=== PATIENT | male | born 1950 | race Caucasian/White ===

== ENCOUNTER → 2019-04-17 15:20 | Outpatient (CLI) | payer MEDICARE, OTHER, SELFPAY ==
--- NOTE | 2019-04-17 | DI.US.S_ITS ---
PROCEDURE: US EXTREMITY NONVASC LOWER LT INDICATIONS: LOCALIZED SWELLING OR MASS LEFT BUTTOCK TECHNIQUE: Real-time scanning was performed of the left buttock, with image documentation. COMPARISON: None. FINDINGS: Solid hyperechoic subcutaneous soft tissue mass corresponding to the palpable abnormality measuring 4.7 x 1.0 x 1.2 cm. IMPRESSION: Solid hyperechoic subcutaneous soft tissue mass which may represent a lipoma; however differential would include both benign and malignant etiologies. If indicated, soft tissue MRI could be performed for further characterization. Dictated by: Zheng Danielson [facility] Interpreted: Pro Al MD on 04/19/2019 at 8:29 Approved by: Pro Al M.D. on 04/19/2019 at 11:21
== END ==
PROVIDERS: Family Provider Family Medicine; PCP Family Medicine; Referring Provider Family Medicine; Visit Provider Family Medicine
DX: R22.2 Localized swelling, mass and lump, trunk (principal)
CPT/HCPCS: 76882

== ENCOUNTER → 2019-05-14 15:46 | Outpatient (CLI) | payer MEDICARE, OTHER, SELFPAY ==
--- NOTE | 2019-05-14 15:48 | DI.MRI.S_ITS ---
PROCEDURE: MR PELIS WO/W CON INDICATIONS: atypical soft tissue mass left butt(medial ) R/O sarcoma TECHNIQUE: Noncontrast coronal T1 spin echo and STIR, sagittal T1 spin echo with fat saturation and STIR, axial T1 spin echo and T2 fast spin echo with fat saturation. After the administration of contrast, axial/sagittal/coronal T1 spin echo with fat saturation through the pelvis. COMPARISON: [facility], US, US EXTREMITY NONVASC LOWER LT, 04/17/2019, 16:10. FINDINGS: Image quality: Excellent. Bones: Diffusely heterogeneous appearance of the marrow signal intensity, of unknown etiology. The overlying cortex appears intact. No abnormal intraosseous enhancement. Lumbar spondylosis and facet disease. Incidental small synovial herniation pit seen at the right femoral head neck junction. Soft tissues: In the inferior left gluteal subcutaneous soft tissues, there is ill-defined enhancement measuring approximately 9 mm. There is some subtle internal fat signal present. No discrete abscess is identified. No underlying signal abnormalities. No pathologically enlarged lymphadenopathy. IMPRESSION: 9 mm area of subcutaneous focal enhancement present within the inferior left gluteal soft tissues, technically indeterminate. There is predominantly peripheral ill-defined enhancement pattern. This finding is technically nonspecific and infectious or inflammatory etiologies in differential, including entities such as fat necrosis. A small soft tissue mass cannot be excluded (and lipoma is still conceivable, statistically less likely liposarcoma) Therefore recommend clinical correlation and management. Continued imaging surveillance could be performed with serial ultrasound to document long-term stability or resolution. Heterogeneous appearance of the marrow signal intensity raising possibility of chronic anemia or other diffuse marrow infiltrative process. Dictated by: Jhon Goddard M.D. on 05/14/2019 at 17:03 Approved by: Jhon Goddard M.D. on 05/14/2019 at 17:13
== END ==
PROVIDERS: Family Provider Family Medicine; PCP Family Medicine; Referring Provider Specialist; Visit Provider Specialist
DX: R29.898 Other symptoms and signs involving the musculoskeletal system (principal)
CPT/HCPCS: 72197; A9579

== ENCOUNTER → 2019-09-27 14:38 | Outpatient (CLI) | payer MEDICARE, OTHER, SELFPAY ==
[2019-09-29 19:09] LABS: COVID19 Sendout Not Detected (Not Detect)
== END ==
PROVIDERS: Family Provider Family Medicine; PCP Student in an Organized Health Care Education/Training Program; Visit Provider Physician Assistant
DX: Z01.818 Encounter for other preprocedural examination (principal)
CPT/HCPCS: 87635

== ENCOUNTER 2019-09-30 08:28 | Day surgery (SDC) | payer MEDICARE, OTHER, SELFPAY ==
[2019-09-24 07:42] VITALS: BMI 27.7
[2019-09-30] VITALS (8 sets, daily range): BP systolic 121–147; BP diastolic 84–95; PULSE 52–56; RESP 10–20; TEMP 36–36.6; O2SAT 97–99; BMI 27.7
--- NOTE | 2019-09-30 | PATH_ITS ---
[facility] Accession Number: [id number] . 01 Material submitted: . buttock - LEFT BUTTOCK MASS . 01 Clinical history: . SDC . 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 MRV 10/03/2019 1204 Local . 01 Electronically signed: . Connie Ordoñez MD, Dermatopathologist NPI- [id number] . 01 Gross description: . Received in formalin and labeled with left buttock mass, is one piece of urrutia adipose tissue measuring 5.0 x 5.0 x 2.0 cm. The tissue is inked, serially sectioned into eight slices, and entirely submitted in cassettes A1-A6; three slices in cassette A1 and the remaining five slices in cassettes A2-A6, with one slice per cassette. ([id number]) /MRV 10/01/2019 1053 Local . 01 Pathologist provided ICD-10: D48.5 . 01 CPT . 128879 Performed at: [address] [facility] [address], [place], [place] [id number] MD Evin Pop MD Phone: [phone]
[2019-09-30] MEDS: LACTATED RINGERS 1,000 ML 42 ML IV (08:49)
--- NOTE | 2019-09-30 10:16 | PM.HP.1 ---
History of Present Illness History of Present Illness Date Patient Seen: 09/30/19 Time Patient Seen: 10:16 Chief complaint: SDC Narrative: The patient is a gentleman here for removal of a mass from his left buttock. MRI reveals a subcutaneous mass not suspicious for sarcomatous growth. Patient History Surgical History No history of previous surgery (Acute) Family & Social History Family History Mother Breast cancer Social History: household members significant other Tobacco & Substance use: Smoking Status Never smoker alcohol intake current alcohol intake frequency 0-2 drinks per day Substance Use Type does not use Meds Home Medications and Allergies Home Medications Medication Instructions Recorded Confirmed Type No Known Home Medications 05/08/19 09/24/19 History Allergies Allergy/AdvReac Type Severity Reaction Status Date / Time bisoprolol [BISOPROLOL] AdvReac Unknown ANXIETY Verified 09/30/19 09:01 digoxin [DIGOXIN] AdvReac Unknown ANXIETY Verified 09/30/19 09:01 lisinopril [LISINOPRIL] AdvReac Unknown ANXIETY Verified 09/30/19 09:01 Penicillins [PENICILLINS] AdvReac Unknown SOFT SKIN Verified 09/30/19 09:01 FUMARATE AdvReac Unknown ANXIETY Uncoded 09/30/19 09:01 Review of Systems Review of Systems ROS: Yes All systems reviewed with the patient and are negative except as otherwise documented Exam Vital Signs (past 8 hours): - 09/30/19 08:50 Temperature 96.8 F L Pulse Rate 52 L Respiratory Rate 20 Blood Pressure 136/88 Pulse Oximetry 98 Oxygen Delivery Method Room Air Narrative Exam Narrative: Pleasant cooperative patient no apparent distress. Lungs are clear to auscultation. No rales or rhonchi. Heart regular rate and rhythm no murmur gallop. The patient has a palpable subcutaneous mass in his left buttock overlying his ischial tuberosity. It measures approximately 4 by 3 cm. Patient is alert and oriented x3. Assessment & Plan Assessment and plan (1) Lipoma: Status: Acute Assessment & Plan narrative: Patient has localized symptoms with this mass. It is right where he sits. He would like to have it removed. I have discussed removal including risks of bleeding infection recurrence. I also talked with him about post op restrictions. All questions answered.
--- NOTE | 2019-09-30 10:21 | PM.PREOP ---
Pre-operative Note COVID-19 COVID-19 status: Negative Result date/Date tested (Pos, Neg/Pending): 09/30/19 Interval Note History & Physical reviewed/Exam performed by Physician: Yes Changes to H&P: No
--- NOTE | 2019-09-30 10:21 | SUR.OPER ---
Lateral on padded OR bed, head on pillow, gel axillary roll in place, bottom leg bent with gel pad under knee to foot, upper leg straight and supported with pillows. Upper arm supported by pillows and secured over bottom arm to padded arm board. Safety belt at hip, tape over blanket lower legs.
[2019-09-30] MEDS: BUPIVACAINE 0.5% (PF) VIAL 30 ML INJ (11:41)
[2019-09-30] MEDS: BACITRACIN OINT 0.9 GM PCKT 1 APPLIC TOP (11:52)
--- NOTE | 2019-09-30 12:13 | SUR.PHASEI ---
Received to PACU at 1158 after general anesthesia. Airway patent, self maintained. Report received from Dr Colon and Sammi Harmon RN.
--- NOTE | 2019-09-30 12:41 | PM.OP.1 ---
Operative Date/Time/Diagnoses Date of procedure: 09/30/19 Time of procedure: 12:21 Pre-op diagnosis: Mass on buttock probable lipoma Post-op diagnosis: same Procedure & Clinicians Procedure: Excision of mass measured 4 x 3 cm Same procedure as scheduled: Yes Indications: Symptomatic mass on buttock Surgeon: Jair Tan Anesthesia Type: General Operative Notes Findings: Mass consistent with lipoma Closure Type: primary Specimen(s): other (Mass) Prosthetic devices, grafts, tissues, transplants, or devices: None Estimated Blood Loss (mL): 5 Blood products transfused: none Procedure in detail: Patient was placed in the right lateral decubitus position after undergoing general LMA anesthesia. He was prepped and draped in the usual fashion. Local anesthetic was infiltrated and a transverse incision made overlying the mass. The incision was carried down in the subcu and the subcu to down to and including the mass was excised using principally cautery. space was partially closed with 3 0 Vicryl. The subcu was closed with interrupted 3 0 Vicryl and the skin was closed with interrupted 3 0 nylon vertical mattress sutures. Dressing was applied the patient was placed back in his bed extubated and taken recovery room good condition Complications: none Post-operative Condition: stable Disposition: PACU
== END 2019-09-30 12:55 | disposition home or self-care (01) ==
PROVIDERS: Family Provider Family Medicine; PCP Student in an Organized Health Care Education/Training Program; Referring Provider Specialist; Visit Provider Specialist
PROC: (CPT 11406; principal; 2019-09-30 09:45)
DX: D48.5 Neoplasm of uncertain behavior of skin (principal)
CPT/HCPCS: 11406; J1100; J1885; J2250; J2405; J2704; J3010

== ENCOUNTER → 2019-11-07 07:06 | Outpatient (CLI) | payer MEDICARE, OTHER, SELFPAY ==
[2019-11-07 08:49] LABS: Add Manual Diff / Slide Review NO; Basophils Absolute Auto 100 /uL (0-100); Eosinophils Absolute Auto 200 /uL (0-450); Eosinophils Percent Auto 4.6 % (2-4); Hematocrit 45.1 % (41-53); Hemoglobin 15.3 g/dL (13.5-17.5); Lymphocytes Absolute Auto 1700 /uL (1100-4500); Lymphocytes Percent Auto 32.1 % (25-40); Mean Corpuscular HGB Conc 33.9 % (30-36); Mean Corpuscular Hemoglobin 31.6 PG (26-34); Mean Corpuscular Volume 93.4 fL (80-100); Monocytes Absolute Auto 600 /uL (0-900); Monocytes Percent Auto 11.9 % (3-14); Neutrophils Absolute Auto 2700 /uL (1500-7000); Neutrophils Percent Auto 50.4 % (50-75); Platelet Count 194 X10^3/uL (150-400); Red Blood Cell Count 4.84 X10^6/uL (4.5-5.9); Red Cell Distribution Width 12.8 % (11.6-14.8); White Blood Cell Count 5.4 X10^3/uL (4.5-11.0)
[2019-11-07 08:57] LABS: BUN Creatinine Ratio 14.6 (6-22); Blood Urea Nitrogen 14 mg/dL (9-20); Calcium 9.1 mg/dL (8.4-10.2); Carbon Dioxide 27 mmol/L (22-32); Chloride 104 mmol/L (98-107); Cholesterol 189 mg/dL (140-199); Estimated Glomerular Filt Rate > 60.0 mL/min (>60); Glucose 99 mg/dL (80-110); HDL Cholesterol 49 mg/dL (40-60); HEMOLYSIS < 15 (0-50); LDL Cholesterol Calculated 120 mg/dL (<100); Potassium 4.9 mmol/L (3.4-5.1); Sodium 138 mmol/L (137-145); Triglycerides 99 mg/dL (35-150)
== END ==
PROVIDERS: Family Provider Family Medicine; PCP Student in an Organized Health Care Education/Training Program; Referring Provider Internal Medicine Cardiovascular Disease; Visit Provider Internal Medicine Cardiovascular Disease
DX: Z00.00 Encounter for general adult medical examination without abnormal findings (principal); I48.0 Paroxysmal atrial fibrillation
CPT/HCPCS: 36415; 80048; 80061; 85025

== ENCOUNTER → 2020-01-21 14:53 | Outpatient (CLI) | payer MEDICARE, OTHER, SELFPAY ==
--- NOTE | 2020-01-21 14:59 | DI.ECHO.S_ITS ---
[facility] +---------+ : : [address] : : : : [id number] : : : : Phone: [phone] Echocardiogram Report + + :Name: EMMA GALLEGO Study Date: 01/21/2020 Height: 73 in : :[facility] Weight: 214 lb : : Gender: Male BSA: 2.2 m2 : :: 1950 Age: 69 yrs BP: 137/88 mmHg: :Reason For Study: ATRIAL FIBRILLATION : :Ordering Physician: DEX, : :SAUNDRA Performed By: Britta Duran : :Referring: SAUNDRA MILLER : + + Interpretation Summary 1) Normal left ventricular size, wall motion, and systolic function (EF 55- 60%). 2) The right ventricle is mildly dilated. The right ventricular systolic function is normal. 3) No significant valvular abnormalities. 4) No prior Echo available for comparison. Procedure: A two-dimensional transthoracic echocardiogram with color flow and Doppler was performed. The study quality was technically adequate. There is no prior echocardiogram noted for this patient. The patient was in sinus rhythm with heart rates between 54-66 bpm during the exam. The patient had occasional PACs during the exam. Left Ventricle: The left ventricle is normal in size. There is borderline concentric left ventricular hypertrophy. The ejection fraction is estimated to be 55-60%. Left ventricular systolic function appears normal without focal wall motion abnormalities. Right Ventricle: The right ventricle is mildly dilated. The right ventricular systolic function is normal. Atria: The left atrial size is normal. Right atrial size is normal. There is no Doppler evidence for an interatrial shunt. Mitral Valve: The mitral valve is normal in structure and function. There is trace mitral regurgitation. Aortic Valve: The aortic valve is trileaflet. The aortic valve opens well. There is no aortic valve stenosis. No aortic regurgitation is present. Tricuspid Valve: The tricuspid valve is normal in structure and function. There is mild tricuspid regurgitation. The right ventricular systolic pressure is estimated to be at least 20 mmHg based on an estimated right atrial pressure of 3 mm Hg. Pulmonic Valve: The pulmonic valve leaflets are thin and pliable; valve motion is normal. There is trace pulmonic regurgitation. Great Vessels: The aortic root is normal size. The ascending aorta is at the upper limits of normal in size. The IVC is of normal diameter and collapses greater than 50% with a sniff. This suggests a low right atrial pressure of 3 mm Hg. Pericardium/ Pleura There is no pericardial effusion. There is no pleural effusion. MMode/2D Measurements & Calculations LVIDd: 5.5 cm LVOT diam: 2.2 cm LVIDs: 3.7 cm Ao root diam: 3.9 cm FS: 31.8 % asc Aorta Diam: 3.5 cm EPSS: 0.81 cm Ao Arch Diam (Prox Trans): 2.7 cm IVSd: 1.0 cm LVPWd: 1.1 cm LV carter. diameter/BSA (cm/m^2): 2.5 LV sys. diameter/BSA (cm/m^2): 1.7 LA A2 area: 21.2 cm2 RA long axis: 5.6 cm LA A4 area: 23.6 cm2 RA area: 20.4 cm2 LA length (vol): 6.1 cm RA vol: 62.9 ml LA vol: 69.9 ml RA : 28.4 ml/m2 LA vol index: 31.6 ml/m2 IVC diam: 1.5 cm RVD1 (basal): 4.3 cm TAPSE: 2.2 cm Doppler Measurements & Calculations Ao V2 max: 111.4 cm/sec LVOT Max Brian: 84.3 cm/sec Ao V2 mean: 73.9 cm/sec LV V1 max P.8 mmHg Ao max P.0 mmHg LV V1 VTI: 17.7 cm Ao mean P.5 mmHg SRAVAN(I,D): 2.9 cm2 Ao V2 VTI: 22.8 cm SRAVAN(V,D): 2.8 cm2 sev ratio: 0.78 SRAVAN indexed to BSA (cm^2/m^2): 1.3 MV E max brian: 63.8 cm/sec TR max brian: 210.2 cm/sec MV A max brian: 56.5 cm/sec TR max P.7 mmHg MV E/A: 1.1 PA V2 max: 61.4 cm/sec Med Peak E' Brian: 8.2 cm/sec PA V2 mean: 39.4 cm/sec E/E' med: 7.8 PA mean P.74 mmHg Lat Peak E' Brian: 9.6 cm/sec PA pr(Accel): -1.5 mmHg E/E' lat: 6.7 E/e' average: 7.2 MV dec time: 0.29 sec SV(LVOT): 66.8 ml Reading Physician:04:48 PM
== END ==
PROVIDERS: PCP Student in an Organized Health Care Education/Training Program; Referring Provider Internal Medicine Cardiovascular Disease; Visit Provider Internal Medicine Cardiovascular Disease
DX: I48.0 Paroxysmal atrial fibrillation (principal)
CPT/HCPCS: 93306

== ENCOUNTER → 2020-03-27 09:12 | Outpatient (CLI) | payer MEDICARE, OTHER, SELFPAY ==
[2020-03-27] MEDS: COVID-19 VACC #1, MRNA(MOD) 100 MCG/0.5 ML VIAL IM (09:17)
== END ==
PROVIDERS: PCP Student in an Organized Health Care Education/Training Program; Visit Provider Internal Medicine
DX: Z23 Encounter for immunization (principal)
CPT/HCPCS: 0011A; 91301

== ENCOUNTER → 2020-04-24 09:04 | Outpatient (CLI) | payer MEDICARE, OTHER, SELFPAY ==
[2020-04-24] MEDS: COVID-19 VACC #2, MRNA(MOD) 100 MCG/0.5 ML VIAL IM (09:08)
== END ==
PROVIDERS: PCP Student in an Organized Health Care Education/Training Program; Visit Provider Internal Medicine
DX: Z23 Encounter for immunization (principal)
CPT/HCPCS: 0012A; 91301

== ENCOUNTER → 2020-12-16 07:07 | Outpatient (CLI) | payer MEDICARE, OTHER, SELFPAY ==
[2020-12-16 09:09] LABS: BUN Creatinine Ratio 22.3 (6-22); Blood Urea Nitrogen 21 mg/dL (9-20); Calcium 9.3 mg/dL (8.4-10.2); Carbon Dioxide 27 mmol/L (22-32); Chloride 103 mmol/L (98-107); Estimated Glomerular Filt Rate > 60.0 mL/min (>60); Glucose 101 mg/dL (80-110); HEMOLYSIS < 15 (0-50); Potassium 4.4 mmol/L (3.4-5.1); Sodium 139 mmol/L (137-145)
== END ==
PROVIDERS: PCP Student in an Organized Health Care Education/Training Program; Referring Provider Internal Medicine Cardiovascular Disease; Visit Provider Internal Medicine Cardiovascular Disease
DX: I48.0 Paroxysmal atrial fibrillation (principal); I48.3 Typical atrial flutter
CPT/HCPCS: 36415; 80048

== ENCOUNTER → 2021-05-25 07:17 | Outpatient (CLI) | payer MEDICARE, OTHER, SELFPAY ==
[2021-05-25 08:57] LABS: Prostate Specific Antigen Scrn 9.22 ng/mL (0.1-4.0)
== END ==
PROVIDERS: PCP Student in an Organized Health Care Education/Training Program; Referring Provider Student in an Organized Health Care Education/Training Program; Visit Provider Student in an Organized Health Care Education/Training Program
DX: Z12.5 Encounter for screening for malignant neoplasm of prostate (principal)
CPT/HCPCS: 36415; G0103

== ENCOUNTER → 2021-07-07 13:50 | Outpatient (CLI) | payer MEDICARE, OTHER, SELFPAY ==
[2021-07-08 15:09] LABS: PSA Free % 14.6 % (.); PSA, Total 9.3 ng/mL (0.0-4.0)
== END ==
PROVIDERS: PCP Student in an Organized Health Care Education/Training Program; Referring Provider Student in an Organized Health Care Education/Training Program; Visit Provider Student in an Organized Health Care Education/Training Program
DX: R97.20 Elevated prostate specific antigen [PSA] (principal); N40.1 Benign prostatic hyperplasia with lower urinary tract symptoms; N13.8 Other obstructive and reflux uropathy
CPT/HCPCS: 36415; 51798; 81002; 84153; 84154; 99214

== ENCOUNTER → 2021-08-23 06:38 | Outpatient (CLI) | payer MEDICARE, OTHER, SELFPAY ==
--- NOTE | 2021-08-23 06:41 | DI.MRI.S_ITS ---
PROCEDURE: MR PELVIS WO CON INDICATIONS: Left hip pain; h/o soft tissue surgery TECHNIQUE: Noncontrast coronal and axial T1 spin echo and STIR through the bony pelvis. COMPARISON: [facility], MR, MR PELVIS WO/W CON, 05/14/2019, 15:57. FINDINGS: Image quality: Excellent. Bones: Markedly heterogeneous marrow signal throughout visualized bony pelvis and lower lumbar spine is seen not significantly changed from previous study. There is no marrow edema. Right worse than left bilateral hip joint osteoarthritic changes are seen with superior joint space narrowing and subchondral sclerosis. No intraosseous lesions or fractures identified. No evidence of avascular necrosis of femoral heads. Subcortical cysts are again noted involving bilateral anterior femoral head neck junction which can be seen associated with CAM type femoral acetabular impingement. The visualized lower lumbar spine appears normally aligned. Tendons: Bilateral distal gluteus medius and minimus tendinosis at their greater trochanteric insertion is seen. The nearby proximal iliotibial band also appears intact. The iliopsoas tendon appears intact, without adjacent bursal fluid collections or evidence for impingement syndrome. The origin of the hamstring tendon is intact at the ischial tuberosity, as well as the associated sacrotuberous ligament. The straight and reflected heads of the rectus femoris muscle origin appear intact, as well as the conjoint tendon. Subtle signal abnormality and contour irregularity involving bilateral superior anterior hip labrum is seen concerning for subtle bilateral hip labral tear. Thinning of articulating cartilages in bilateral femoral head is also seen. Soft tissues: Visualized muscles demonstrate normal bulk and internal signal. No joint effusions. No free pelvic fluid. Bladder wall thickness is normal. Enlarged prostate gland is noted with mild mass effect on floor of urinary bladder. IMPRESSION: 1. Right worse than left bilateral [id number] hip joint osteoarthritis as above. No fracture or dislocation. No evidence of avascular necrosis of femoral head. Prominence of bilateral anterior femoral head neck junction is seen with subcortical cystic changes which may be seen associated with CAM type femoral acetabular impingement. 2. Chronic appearing heterogeneous appearance of marrow signal throughout bony pelvis and lower lumbar spine unchanged from prior study suggestive of chronic anemia or other diffuse marrow infiltrative process. 3. Previously noted left gluteal soft tissue lesion is no longer present suggestive of interval surgical resection. No discrete soft tissue mass or fluid collection is seen. 4. Finding is concerning for bilateral superior anterior hip labral tear. 5. Symmetric appearing bilateral distal gluteus medius and minimus tendinosis. No other muscle or tendon signal abnormality. 6. Enlarged prostate gland with mass effect on floor of urinary bladder. Dictated by: Pro Al M.D. on 08/23/2021 at 10:39 Approved by: Pro Al M.D. on 08/23/2021 at 10:58
== END ==
PROVIDERS: PCP Student in an Organized Health Care Education/Training Program; Referring Provider Student in an Organized Health Care Education/Training Program; Visit Provider Student in an Organized Health Care Education/Training Program
DX: D17.9 Benign lipomatous neoplasm, unspecified (principal); M25.552 Pain in left hip; N40.0 Benign prostatic hyperplasia without lower urinary tract symptoms; M16.0 Bilateral primary osteoarthritis of hip; G89.29 Other chronic pain
CPT/HCPCS: 72195

== ENCOUNTER → 2021-08-25 09:34 | Outpatient (CLI) | payer MEDICARE, OTHER, SELFPAY ==
[2021-08-27 03:46] LABS: Prostate Specific Antigen 7.35 ng/mL (0.10-4.00)
== END ==
PROVIDERS: PCP Student in an Organized Health Care Education/Training Program; Referring Provider Specialist; Visit Provider Specialist
DX: R97.20 Elevated prostate specific antigen [PSA] (principal)
CPT/HCPCS: 36415; 84153

== ENCOUNTER → 2021-08-31 08:12 | Outpatient (CLI) | payer MEDICARE, OTHER, SELFPAY ==
[2021-08-31 09:46] LABS: Add Manual Diff / Slide Review NO; Basophils Absolute Auto 100 /uL (0-100); Basophils Percent Auto 1.1 % (0-2); Eosinophils Absolute Auto 300 /uL (0-450); Hematocrit 43.8 % (41-53); Hemoglobin 15.3 g/dL (13.5-17.5); Lymphocytes Absolute Auto 1800 /uL (1100-4500); Lymphocytes Percent Auto 33.3 % (25-40); Mean Corpuscular HGB Conc 34.8 % (30-36); Mean Corpuscular Hemoglobin 31.6 PG (26-34); Mean Corpuscular Volume 90.6 fL (80-100); Monocytes Absolute Auto 500 /uL (0-900); Monocytes Percent Auto 10.1 % (3-14); Neutrophils Absolute Auto 2700 /uL (1500-7000); Neutrophils Percent Auto 50.5 % (50-75); Platelet Count 166 X10^3/uL (150-400); Red Blood Cell Count 4.84 X10^6/uL (4.5-5.9); Red Cell Distribution Width 12.8 % (11.6-14.8); White Blood Cell Count 5.3 X10^3/uL (4.5-11.0)
[2021-08-31 10:15] LABS: Alanine Aminotransferase 18 IU/L (<50); Albumin 4.3 g/dL (3.5-5.0); Albumin Globulin Ratio 1.5 (1.0-2.8); Alkaline Phosphatase 65 U/L (38-126); Aspartate Aminotransferase 26 IU/L (17-59); BUN Creatinine Ratio 18.2 (6-22); Bilirubin Total 1.2 mg/dL (0.2-1.3); Blood Urea Nitrogen 18 mg/dL (9-20); Calcium 8.9 mg/dL (8.4-10.2); Carbon Dioxide 24 mmol/L (22-32); Chloride 106 mmol/L (98-107); Estimated Glomerular Filt Rate > 60 mL/min (>60); Globulin 2.9 g/dL (1.7-4.1); Glucose 92 mg/dL (80-110); HEMOLYSIS < 15 (0-50); Lactate Dehydrogenase 361 U/L (313-618); Potassium 4.2 mmol/L (3.4-5.1); Sodium 137 mmol/L (137-145); Total Protein 7.2 g/dL (6.3-8.2)
[2021-08-31 11:04] LABS: Vitamin B12 346 pg/mL (239-931)
== END ==
PROVIDERS: PCP Student in an Organized Health Care Education/Training Program; Referring Provider Student in an Organized Health Care Education/Training Program; Visit Provider Student in an Organized Health Care Education/Training Program
DX: C94.40 Acute panmyelosis with myelofibrosis not having achieved remission (principal)
CPT/HCPCS: 36415; 80053; 82607; 83615; 85025

== ENCOUNTER → 2021-11-11 07:01 | Outpatient (CLI) | payer MEDICARE, OTHER, SELFPAY ==
[2021-11-12 07:27] LABS: PSA Free % 15.2 % (.); PSA, Total 10.5 ng/mL (0.0-4.0)
== END ==
PROVIDERS: Family Provider Student in an Organized Health Care Education/Training Program; PCP Student in an Organized Health Care Education/Training Program; Referring Provider Specialist; Visit Provider Specialist
DX: R97.20 Elevated prostate specific antigen [PSA] (principal)
CPT/HCPCS: 36415; 84153; 84154

== ENCOUNTER 2021-11-17 05:38 | Emergency (ER) | payer MEDICARE, OTHER, SELFPAY ==
[2021-11-17 05:53] VITALS: BP 178/101; PULSE 63; RESP 17; TEMP 36.1; O2SAT 99; BMI 26.4
--- NOTE | 2021-11-17 06:00 | ED.EXTPRO ---
HPI - Extremity Problem <Joselo Murphy DO - Last Filed: 11/17/21 07:06> General Chief complaint: Extremity Problem,Nontraumatic Stated complaint: pain in crotch Time Seen by Provider: 11/17/21 05:47 Source: patient Mode of arrival: Ambulatory Limitations: no limitations History of Present Illness HPI Narrative: Patient is a 71-year-old male who is here for evaluation approximately 1 week of right-sided hip/groin pain that has been worsening over the past 4 days. He states that it is a deep inside pain that has been keeping him up at night. He denies any urinary symptoms. No change in bowel habits. No skin changes. No back pain. No abdominal pain. No nausea vomiting. Not worse with palpation. Not worse with moving his leg. Surgeries in the area. Has been doing Tylenol and ibuprofen without any improvement. Related Data Home Medications Medication Instructions Recorded Confirmed cholecalciferol (vitamin D3) PO 07/07/21 09/30/21 [Vitamin D3] magnesium PO 07/07/21 09/30/21 multivitamin [Daily Multi-Vitamin] PO 07/07/21 09/30/21 omega-3 fatty acids PO 07/07/21 09/30/21 tumeric PO 07/07/21 09/30/21 Previous Rx's Medication Instructions Recorded hydrocodone 5 mg-acetaminophen 325 1 tab PO Q6H PRN pain #10 tabs 11/17/21 mg tablet Allergies Allergy/AdvReac Type Severity Reaction Status Date / Time bisoprolol [BISOPROLOL] AdvReac Unknown ANXIETY Verified 09/30/21 13:58 digoxin [DIGOXIN] AdvReac Unknown ANXIETY Verified 09/30/21 13:58 lisinopril [LISINOPRIL] AdvReac Unknown ANXIETY Verified 09/30/21 13:58 Penicillins [PENICILLINS] AdvReac Unknown SOFT SKIN Verified 09/30/21 13:58 FUMARATE AdvReac Unknown ANXIETY Uncoded 09/30/21 13:58 Review of Systems <DO Neil Chavez Last Filed: 11/17/21 07:06> Constitutional Constitutional: Denies chills and Denies fever(s) Gastrointestinal Gastrointestinal: Denies abdominal pain, Denies change in bowel habits, Denies nausea and Denies vomiting Genitourinary Genitourinary: Denies dysuria and Denies testicular pain Comments: Right-sided groin pain Musculoskeletal Musculoskeletal: Denies back pain Integumentary/Breasts Skin/Breast: Denies rash Neurologic Neurologic: Reports system reviewed and no additional complaints, except as documented Hematologic/Lymphatic On Anticoagulants: No Patient History <Joselo Murphy DO - Last Filed: 11/17/21 07:06> Medical History BPH w urinary obs/LUTS Elevated PSA History of arthritis History of high blood pressure Surgical History Hx of hernia repair Hx of vasectomy No history of previous surgery Family History Mother Breast cancer Thyroid disorder Social History marital status: unmarried,single number of children: 2 household members: significant other occupational status: previously employed Smoking Status: Never smoker alcohol intake: current substance use type: does not use caffeine: Yes eating out: 1-3 times/week Type(s) of exercise: walking and weight lifting Smoking Status: Never smoker alcohol intake frequency: 0-2 drinks per day Substance Use Type: does not use Exam <Joselo Murphy DO - Last Filed: 11/17/21 07:06> Initial Vital Signs Initial Vital Signs: Vital Signs Temperature 97.0 F L 11/17/21 05:53 Pulse Rate 63 11/17/21 05:53 Respiratory Rate 17 11/17/21 05:53 Blood Pressure 178/101 H 11/17/21 05:53 Pulse Oximetry 99 11/17/21 05:53 Oxygen Delivery Method 11/17/21 05:53 Const General: cooperative, comfortable, well developed and No ill appearing HENTX Head: normal to inspection and normocephalic Resp Effort & Inspection: normal respiratory effort Cardio Rate: regular rate GI Inspection: normal to inspection and non-distended Palpation: soft, No firm and No tender External: normal external exam, circumcised, no hernia, no inguinal lymphadenopathy, no lesions, no scrotal swelling and nontender Penis: normal penis Scrotum: scrotum normal Testes: normal, testicular lie normal and no masses Skin General: no rashes or lesions noted Neuro General: patient alert, patient awake, patient oriented x3 and moves all extremities Gait: normal gait Extrem Other: Patient with abduction and adduction and internal and external rotation and flexion-extension of the right hip does not reproduce any symptoms. His right knee is unremarkable. Psych Appearance: grossly normal and well kempt <Gracie Ambrosio DO - Last Filed: 11/17/21 07:26> Initial Vital Signs Initial Vital Signs: Vital Signs Temperature 97.0 F L 11/17/21 05:53 Pulse Rate 63 11/17/21 05:53 Respiratory Rate 17 11/17/21 05:53 Blood Pressure 178/101 H 11/17/21 05:53 Pulse Oximetry 99 11/17/21 05:53 Oxygen Delivery Method 11/17/21 05:53 Course <Joselo Murphy DO - Last Filed: 11/17/21 07:06> Orders Ordered: ED Orders 11/17/21 06:15 Complete Blood Count AUTO DIFF Stat Comprehensive Metabolic Panel Stat Lactate (Lactic Acid) Stat Lipase Stat 11/17/21 06:58 CT abdomen pelvis w con Stat Vital Signs Vital signs: Vital Signs - 8 hr 11/17/21 05:53 Temperature 97.0 F L Pulse Rate 63 Respiratory Rate 17 Blood Pressure 178/101 H Pulse Oximetry 99 Oxygen Delivery Method Room Air <Gracie Ambrosio DO - Last Filed: 11/17/21 07:26> Orders Ordered: ED Orders 11/17/21 06:15 Complete Blood Count AUTO DIFF Stat Comprehensive Metabolic Panel Stat Lactate (Lactic Acid) Stat Lipase Stat 11/17/21 06:58 CT abdomen pelvis w con Stat Vital Signs Vital signs: Vital Signs - 8 hr 11/17/21 05:53 Temperature 97.0 F L Pulse Rate 63 Respiratory Rate 17 Blood Pressure 178/101 H Pulse Oximetry 99 Oxygen Delivery Method Room Air MDM - Extremity (Nontraumatic) <Joselo Murphy DO - Last Filed: 11/17/21 07:06> Lab Data Result diagrams: 11/17/21 06:15 11/17/21 06:15 Labs: Lab Results 11/17/21 11/17/21 11/17/21 Range/Units 06:15 06:15 06:15 WBC 6.8 (4.5-11.0) X10^3/uL RBC 5.03 (4.5-5.9) X10^6/uL Hgb 15.9 (13.5-17.5) g/dL Hct 45.5 (41-53) % MCV 90.4 (80-100) fL MCH 31.5 (26-34) PG MCHC 34.9 (30-36) % RDW 13.3 (11.6-14.8) % Plt Count 184 (150-400) X10^3/uL Neut % (Auto) 63.9 (50-75) % Lymph % (Auto) 23.4 L (25-40) % Crook % (Auto) 10.1 (3-14) % Eos % (Auto) 2.0 (2-4) % Baso % (Auto) 0.6 (0-2) % Neut # (Auto) 4400 (9067-5918) /uL Lymph # (Auto) 1600 (6617-4430) /uL Crook # (Auto) 700 (0-900) /uL Eos # (Auto) 100 (0-450) /uL Baso # (Auto) 0 (0-100) /uL Sodium 137 (137-145) mmol/L Potassium 4.3 (3.4-5.1) mmol/L Chloride 105 (98-107) mmol/L Carbon Dioxide 25 (22-32) mmol/L BUN 14 (9-20) mg/dL Creatinine 0.93 (0.66-1.25) mg/dL Estimated GFR > 60 (>60) mL/min BUN/Creatinine Ratio 15.1 (6-22) Glucose 116 H (80-110) mg/dL Lactate 1.0 (0.7-2.1) mmol/L Calcium 8.8 (8.4-10.2) mg/dL Total Bilirubin 1.5 H (0.2-1.3) mg/dL AST 30 (17-59) IU/L ALT 24 (<50) IU/L Alkaline Phosphatase 58 (38-126) U/L Total Protein 7.4 (6.3-8.2) g/dL Albumin 4.2 (3.5-5.0) g/dL Globulin 3.2 (1.7-4.1) g/dL Albumin/Globulin Ratio 1.3 (1.0-2.8) Lipase 43 (23-300) U/L Urine Dip Bedside Urine Glucose Negative Bedside Urine Bilirubin - Negative Bedside Urine Ketone - Negative Urine Specific [place] 1.015 Bedside Urine Occult Blood - Negative Bedside Urine pH 7 Bedside Urine Protein - Negative Bedside Urine Urobilinogen - Negative Bedside Urine Nitrite - Negative Bedside Urine Leukocytes - Negative Esterase MDM Narrative Medical decision making narrative: Patient reports a ?deep? right groin pain for the past week worsening over the past 4 days. Has a very benign abdominal exam. The fact that it can not be reproduced with palpation or movement makes me less concerned about muscular etiology. He denies any back pain is I considered that this was a radicular manifestations. No testicular pain. No urinary symptoms. No hernia felt. No skin rashes. Labs obtained. CT scan obtained. Care turned over to day provider to follow-up on workup and disposition. <Gracie Ambrosio, - Last Filed: 11/17/21 07:26> Lab Data Labs: Lab Results 11/17/21 11/17/21 11/17/21 Range/Units 06:15 06:15 06:15 WBC 6.8 (4.5-11.0) X10^3/uL RBC 5.03 (4.5-5.9) X10^6/uL Hgb 15.9 (13.5-17.5) g/dL Hct 45.5 (41-53) % MCV 90.4 (80-100) fL MCH 31.5 (26-34) PG MCHC 34.9 (30-36) % RDW 13.3 (11.6-14.8) % Plt Count 184 (150-400) X10^3/uL Neut % (Auto) 63.9 (50-75) % Lymph % (Auto) 23.4 L (25-40) % Crook % (Auto) 10.1 (3-14) % Eos % (Auto) 2.0 (2-4) % Baso % (Auto) 0.6 (0-2) % Neut # (Auto) 4400 (6451-2383) /uL Lymph # (Auto) 1600 (0544-7327) /uL Crook # (Auto) 700 (0-900) /uL Eos # (Auto) 100 (0-450) /uL Baso # (Auto) 0 (0-100) /uL Sodium 137 (137-145) mmol/L Potassium 4.3 (3.4-5.1) mmol/L Chloride 105 (98-107) mmol/L Carbon Dioxide 25 (22-32) mmol/L BUN 14 (9-20) mg/dL Creatinine 0.93 (0.66-1.25) mg/dL Estimated GFR > 60 (>60) mL/min BUN/Creatinine Ratio 15.1 (6-22) Glucose 116 H (80-110) mg/dL Lactate 1.0 (0.7-2.1) mmol/L Calcium 8.8 (8.4-10.2) mg/dL Total Bilirubin 1.5 H (0.2-1.3) mg/dL AST 30 (17-59) IU/L ALT 24 (<50) IU/L Alkaline Phosphatase 58 (38-126) U/L Total Protein 7.4 (6.3-8.2) g/dL Albumin 4.2 (3.5-5.0) g/dL Globulin 3.2 (1.7-4.1) g/dL Albumin/Globulin Ratio 1.3 (1.0-2.8) Lipase 43 (23-300) U/L Urine Dip Bedside Urine Glucose Negative Bedside Urine Bilirubin - Negative Bedside Urine Ketone - Negative Urine Specific [place] 1.015 Bedside Urine Occult Blood - Negative Bedside Urine pH 7 Bedside Urine Protein - Negative Bedside Urine Urobilinogen - Negative Bedside Urine Nitrite - Negative Bedside Urine Leukocytes - Negative Esterase Imaging Data CT scan - abdomen/pelvis: Radiologist's Impression: Pulmonary report: No evidence of colitis diverticulitis bowel obstruction obstructive uropathy or acute appendicitis. Prostatic enlargement. Multilevel spondylitic changes of the thoracolumbar spine most significantly L3-4, L4-5 MDM Narrative Medical decision making narrative: Patient reports a ?deep? right groin pain for the past week worsening over the past 4 days. Has a very benign abdominal exam. The fact that it can not be reproduced with palpation or movement makes me less concerned about muscular etiology. He denies any back pain is I considered that this was a radicular manifestations. No testicular pain. No urinary symptoms. No hernia felt. No skin rashes. Labs obtained. CT scan obtained. Care turned over to day provider to follow-up on workup and disposition. I received sign-out from Dr. Murphy. I have seen evaluated patient myself. Resting comfortably. Complains of like thigh hip pain. He has a strong distal pedal pulse, on likely to be a vascular problem. Had his biggest problem seems to be sleeping he is not able to sleep at night. CT is negative blood work is negative. Blood pressure is noted to be mildly elevated here in ED says he normally checks it is not typically this high. We discussed monitoring and at home. He has a primary care appointment in a couple of weeks. CT does show some spondylitic changes L3-4 and L4-5 possibly nerve pain. At this time no explanation for his symptoms. Discharge Plan Departure Patient Disposition: Home Clinical Impression: Acute hip pain Qualifiers: Laterality: right Qualified Code(s): M25.551 - Pain in right hip Instructions: DI for Hip Pain Activity Restrictions/Additional Instructions: *You have been diagnosed with hip pain *What to do: At this time no explanation of your pain really. Blood work and CT scan are negative. Recommend some light stretching some light activity no strenuous activity or heavy lifting. *Continue to take medications as directed Pepin 1 tablet every 6 hours if needed for severe pain Ibuprofen 600 mg every 6 hours if needed for [id number] pain *Follow up with your primary care provider in 2-3 days or call [phone] *Return to ER if you should have increasing pain weakness numbness tingling or any new, worsening or concerning symptoms CONTROLLED SUBSTANCE DISCHARGE (Narcotoic/benzodiazepine/Flexeril/Phenergan) 1. You have been prescribed narcotic medications, it does have acetaminophen/Tylenol/paracetamol in it, DO NOT TAKE MORE THAN 4,00mg in 24 hours of Tylenol. TRAMADOL DOES NOT CONTAIN TYLENOL 2. Please understand that we cannot provide further refills of narcotics, benzodiazepines or controlled substances through the ED and her pain management will need to be through your provider. 3. While on these medications you cannot drive or operate heavy machinery. 4. You cannot sign legal documents or perform any duties such as this. 5. As long as you're taking opiate pain medications he should also be taking a stool softener such as Colace, Dulcolax, MiraLAX or prune juice, to help avoid constipation. Prescriptions: New hydrocodone-acetaminophen 5-325 mg tablet 1 tab PO Q6H PRN (Reason: pain) Qty: 10 0RF No Action cholecalciferol (vitamin D3) [Vitamin D3] PO magnesium PO tumeric PO omega-3 fatty acids PO multivitamin [Daily Multi-Vitamin] PO Referrals: Pollo Melissa MD [Primary Care Provider] -
[2021-11-17 06:36] LABS: Add Manual Diff / Slide Review NO; Basophils Absolute Auto 0 /uL (0-100); Basophils Percent Auto 0.6 % (0-2); Eosinophils Absolute Auto 100 /uL (0-450); Hematocrit 45.5 % (41-53); Hemoglobin 15.9 g/dL (13.5-17.5); Lymphocytes Absolute Auto 1600 /uL (1100-4500); Lymphocytes Percent Auto 23.4 % (25-40); Mean Corpuscular HGB Conc 34.9 % (30-36); Mean Corpuscular Hemoglobin 31.5 PG (26-34); Mean Corpuscular Volume 90.4 fL (80-100); Monocytes Absolute Auto 700 /uL (0-900); Monocytes Percent Auto 10.1 % (3-14); Neutrophils Absolute Auto 4400 /uL (1500-7000); Neutrophils Percent Auto 63.9 % (50-75); Platelet Count 184 X10^3/uL (150-400); Red Blood Cell Count 5.03 X10^6/uL (4.5-5.9); Red Cell Distribution Width 13.3 % (11.6-14.8); White Blood Cell Count 6.8 X10^3/uL (4.5-11.0)
[2021-11-17 06:38] LABS: Alanine Aminotransferase 24 IU/L (<50); Albumin 4.2 g/dL (3.5-5.0); Albumin Globulin Ratio 1.3 (1.0-2.8); Alkaline Phosphatase 58 U/L (38-126); Aspartate Aminotransferase 30 IU/L (17-59); BUN Creatinine Ratio 15.1 (6-22); Bilirubin Total 1.5 mg/dL (0.2-1.3); Blood Urea Nitrogen 14 mg/dL (9-20); Calcium 8.8 mg/dL (8.4-10.2); Carbon Dioxide 25 mmol/L (22-32); Chloride 105 mmol/L (98-107); Estimated Glomerular Filt Rate > 60 mL/min (>60); Globulin 3.2 g/dL (1.7-4.1); Glucose 116 mg/dL (80-110); HEMOLYSIS < 15 (0-50); Lipase 43 U/L (23-300); Potassium 4.3 mmol/L (3.4-5.1); Sodium 137 mmol/L (137-145); Total Protein 7.4 g/dL (6.3-8.2)
--- NOTE | 2021-11-17 06:58 | DI.CT.S_ITS ---
PROCEDURE: CT ABDOMEN PELVIS W CON INDICATIONS: RLQ and right groin pain TECHNIQUE: After the administration of intravenous contrast, axial sections acquired from the lung bases to the pubic symphysis. Coronal and sagittal reformats were performed. For radiation dose reduction, the following was used: automated exposure control, adjustment of mA and/or kV according to patient size. COMPARISON: [facility], MR, MR PELVIS WO CON, 08/23/2021, 7:07. FINDINGS: Image quality: Excellent. Lung bases: Unremarkable. Heart: No significant findings. ABDOMEN: Liver: Liver is hypoattenuating, which can be seen in setting of fatty infiltration. Gallbladder: Possible small hyperattenuating gallstone. No pericholecystic inflammatory changes. Biliary ducts: Unremarkable. Pancreas: Unremarkable. Spleen: Unremarkable. Adrenal Glands: Unremarkable. Kidneys and Ureters: Unremarkable. Stomach and Bowel: Small hiatal hernia. Normal appendix. A few diverticula are seen in the colon without signs of acute diverticulitis. Small bowel loops are unremarkable. Peritoneum: No abnormal intraperitoneal fluid. No free air. Ventral Wall: Tiny fat containing periumbilical hernia. Abdominal Nodes: No retroperitoneal or mesenteric adenopathy by size criteria. Vessels: Aorta and inferior vena cava are normal in size. PELVIS: Pelvic Organs: Prostate is enlarged. Bladder: Unremarkable. Pelvic Nodes: No enlarged lymph nodes. Miscellaneous: No hernias are seen. Bones: Degenerative changes are seen in the spine. There is 3 mm grade 1 retrolisthesis of L4 on L5 related to degenerative disc disease. IMPRESSION: 1. No acute abnormality identified in the abdomen or pelvis. Normal appendix. 2. Colonic diverticulosis without signs of acute diverticulitis. 3. Diffuse hepatic steatosis. 4. Suspected cholelithiasis. 5. Small hiatal hernia. 6. Prostatomegaly. There is no significant discrepancy when compared to the overnight preliminary report. Dictated by: Abraham Mncair M.D. on 11/17/2021 at 8:26 Approved by: Abraham Mcnair M.D. on 11/17/2021 at 8:34
== END 2021-11-17 07:34 | disposition home or self-care (01) ==
PROVIDERS: Emergency Medicine; Emergency Provider Emergency Medicine; Family Provider Student in an Organized Health Care Education/Training Program; PCP Student in an Organized Health Care Education/Training Program
DX: M25.551 Pain in right hip (principal); I10 Essential (primary) hypertension
CPT/HCPCS: 36415; 74177; 80053; 81003; 83605; 83690; 85025; 99283; 99284

== ENCOUNTER → 2021-12-09 07:43 | Outpatient (CLI) | payer MEDICARE, OTHER, SELFPAY ==
[2021-12-10 05:13] LABS: PSA Free % 14.3 % (.); PSA, Total 8.4 ng/mL (0.0-4.0)
== END ==
PROVIDERS: Family Provider Student in an Organized Health Care Education/Training Program; PCP Student in an Organized Health Care Education/Training Program; Referring Provider Specialist; Visit Provider Specialist
DX: R97.20 Elevated prostate specific antigen [PSA] (principal)
CPT/HCPCS: 36415; 84153; 84154

== ENCOUNTER → 2021-12-24 12:16 | Outpatient (CLI) | payer MEDICARE, OTHER, SELFPAY ==
--- NOTE | 2021-12-24 12:18 | DI.MRI.S_ITS ---
PROCEDURE: MR PELVIS WO/W CON INDICATIONS: Elevated PSA TECHNIQUE: Coronal HASTE, axial T1 FSE with fat saturation, 3-plane nonbreath-hold T2 FSE. After the administration of contrast, dynamic axial, delayed axial and coronal VIBE or 2-D FLASH with fat saturation through the pelvis. Optional diffusion weighted imaging and ADC may be performed. COMPARISON: [facility], CT, CT ABDOMEN PELVIS W CON, 11/17/2021, 6:53. [facility], MR, MR PELVIS WO/W CON, 05/14/2019, 15:57. FINDINGS: Image quality: Diffusion weighted and dynamic contrast enhanced images are diagnostic. Prostate: Gland size is 5.5 x 4.9 x 5.6 cm; ellipsoid gland volume is 78 mL. Mild linear and wedge-shaped ADC hypointensities present within the prostate peripheral zone with indistinct T2 correlates (PI-RADS 2 findings). Enlargement of the prostate transitional zone with findings typical of benign prostatic hyperplasia. No large lesion strongly stands out against background parenchymal changes of BPH on T2 weighted images (PI-RADS 2 findings). Genitourinary system: Bladder wall thickness is normal. Distal ureters are non distended. Bowel and peritoneum: No pathologic free pelvic fluid. Inferior colon and small bowel loops are normal in caliber. Nodes and vessels: No pelvic or inguinal adenopathy by size criteria. Iliac vessels are normal in caliber. Bones: Marrow demonstrates normal overall signal, without lesions to suggest metastases. IMPRESSION: 1. No large or highly suspicious focal prostate lesion to direct biopsy. There is enlargement of the prostate transitional zone with findings typical of benign prostatic hyperplasia, with prostate volume estimated at 78 mL. 2. No suspicious lymph nodes visualized in the imaged pelvis. Dictated by: Abraham Grace M.D. on 12/25/2021 at 10:55 Approved by: Abraham Grace M.D. on 12/25/2021 at 11:28
== END ==
PROVIDERS: Family Provider Student in an Organized Health Care Education/Training Program; PCP Student in an Organized Health Care Education/Training Program; Referring Provider Specialist; Visit Provider Specialist
DX: N40.1 Benign prostatic hyperplasia with lower urinary tract symptoms (principal); N13.8 Other obstructive and reflux uropathy; R97.20 Elevated prostate specific antigen [PSA]
CPT/HCPCS: 72197; A9579

== ENCOUNTER → 2022-07-21 09:01 | Outpatient (CLI) | payer MEDICARE, OTHER, SELFPAY ==
[2022-07-22 12:56] LABS: PSA Free % 19.6 % (.); PSA, Total 7.8 ng/mL (0.0-4.0)
== END ==
PROVIDERS: Family Provider Student in an Organized Health Care Education/Training Program; PCP Student in an Organized Health Care Education/Training Program; Referring Provider Specialist; Visit Provider Specialist
DX: R97.20 Elevated prostate specific antigen [PSA] (principal)
CPT/HCPCS: 36415; 84153; 84154

== ENCOUNTER → 2023-05-25 08:37 | Outpatient (CLI) | payer MEDICARE, OTHER, SELFPAY ==
[2023-05-25 09:36] LABS: Hemoglobin A1C% w Est Avg Glu 5.3 % (4.0-6.0)
[2023-05-25 09:44] LABS: Alanine Aminotransferase 21 IU/L (<50); Albumin 3.9 g/dL (3.5-5.0); Albumin Globulin Ratio 1.3 (1.0-2.8); Alkaline Phosphatase 62 U/L (38-126); Aspartate Aminotransferase 26 IU/L (17-59); BUN Creatinine Ratio 17.6 (6-22); Bilirubin Total 1.3 mg/dL (0.2-1.3); Blood Urea Nitrogen 18 mg/dL (9-20); Calcium 9.6 mg/dL (8.4-10.2); Carbon Dioxide 23 mmol/L (22-32); Chloride 108 mmol/L (98-107); Estimated Glomerular Filt Rate > 60 mL/min (>60); Globulin 2.9 g/dL (1.7-4.1); Glucose 97 mg/dL (80-110); HEMOLYSIS < 15 (0-50); Potassium 4.6 mmol/L (3.4-5.1); Sodium 138 mmol/L (137-145); Total Protein 6.8 g/dL (6.3-8.2)
[2023-05-28 12:53] LABS: PSA Free % 21.4 % (.); PSA, Total 6.5 ng/mL (0.0-4.0)
== END ==
PROVIDERS: Family Provider Student in an Organized Health Care Education/Training Program; PCP Family Medicine; Referring Provider Family Medicine; Visit Provider Family Medicine
DX: R73.09 Other abnormal glucose (principal); N40.1 Benign prostatic hyperplasia with lower urinary tract symptoms; N13.8 Other obstructive and reflux uropathy; R97.20 Elevated prostate specific antigen [PSA]
CPT/HCPCS: 36415; 80053; 83036; 84153; 84154

== ENCOUNTER → 2023-11-27 09:59 | Outpatient (CLI) | payer MEDICARE, OTHER, SELFPAY ==
[2023-11-28 09:09] LABS: PSA Free % 31.9 % (.); PSA, Total 4.8 ng/mL (0.0-4.0)
== END ==
LOC: LAB 10:01
PROVIDERS: Family Provider Student in an Organized Health Care Education/Training Program; PCP Family Medicine; Referring Provider Urology; Visit Provider Urology
DX: N40.1 Benign prostatic hyperplasia with lower urinary tract symptoms (principal); N13.8 Other obstructive and reflux uropathy; R97.20 Elevated prostate specific antigen [PSA]
CPT/HCPCS: 36415; 84153; 84154

== ENCOUNTER → 2024-01-06 07:36 | Outpatient (CLI) | payer MEDICARE, OTHER, SELFPAY | PROVIDERS: Family Provider Student in an Organized Health Care Education/Training Program; PCP Family Medicine; Visit Provider Physician Assistant Surgical | DX: R30.0 Dysuria (principal); R39.15 Urgency of urination; R35.0 Frequency of micturition | CPT/HCPCS: 87086 ==

== ENCOUNTER → 2024-01-23 08:06 | Outpatient (CLI) | payer MEDICARE, OTHER, SELFPAY | PROVIDERS: Family Provider Student in an Organized Health Care Education/Training Program; PCP Family Medicine; Visit Provider Urology | DX: N40.1 Benign prostatic hyperplasia with lower urinary tract symptoms (principal); Z01.818 Encounter for other preprocedural examination; R97.20 Elevated prostate specific antigen [PSA]; N13.8 Other obstructive and reflux uropathy; N32.89 Other specified disorders of bladder; R39.12 Poor urinary stream; R39.14 Feeling of incomplete bladder emptying; R35.0 Frequency of micturition; R35.1 Nocturia | CPT/HCPCS: 87086; 99214 ==

== ENCOUNTER 2024-02-05 06:23 | Day surgery (SDC) | payer MEDICARE, OTHER, SELFPAY ==
[2024-01-30 13:20] VITALS: BMI 27.0
[2024-02-05] VITALS (7 sets, daily range): BP systolic 108–135; BP diastolic 76–86; PULSE 54–68; RESP 3–16; TEMP 36.2–36.6; O2SAT 96–99; BMI 27.0
--- NOTE | 2024-02-05 | PATH_ITS ---
[facility] Accession Number: [id number] No. of containers..02 Tissue . 01 Material submitted: . PART A: prostate - PROSTATE CHIPS PART B: bladder - BLADDER MASS . 01 Diagnosis: A. PROSTATE CHIPS (11 GRAMS), TRANSURETHRAL RESECTION. Benign prostatic hyperplasia. No evidence of malignancy. . B. SPECIMEN DESIGNATED BLADDER MASS, BIOPSY: Benign prostatic glandular and stromal tissue with hyperplasia. No urothelial mucosa identified. No evidence of malignancy. [facility] 02/07/2024 1419 Local . 01 Comment: B.As part of routine senior quality assurance engineer, part B was also reviewed by Dr. Adolph Hemphill (Julie), who agrees with the interpretation. . 01 Electronically signed: . Carri Lemon MD, Pathologist NPI- [id number] . 01 Gross description: . A. Received in formalin with two patient identifiers and prostate chips, are multiple urrutia soft tissue fragments admixed with a moderate amount of hemorrhagic material weighing 11 grams and aggregating to 8.2 x 5.8 x 1.5 cm. Submitted entirely in A1-A9. B. Received in formalin with two patient identifiers and bladder mass, are two urrutia soft tissue fragments (0.8 x 0.6 x 0.2 cm and 0.4 x 0.4 x 0.2 cm). The slightly concave surfaces possibly consistent with margin are differentially inked, and the largest fragment is bisected. The specimen is submitted entirely in B1. ([id number]) /MRV 02/06/2024 1227 Local . 01 Pathologist provided ICD-10: N40.0 . 01 CPT . 494768, 792001 Specimen Comment: A courtesy copy of this report has been sent to [facility] Pathology Performed at: [address] [facility] [place] [address] [address] [address], [place], [place] [id number] MD Evin Pop MD Phone: [phone]
[2024-02-05] MEDS: ACETAMINOPHEN 325 MG TABLET 975 MG PO (06:52)
[2024-02-05] MEDS: LACTATED RINGERS 1,000 ML 21 ML IV (06:52)
--- NOTE | 2024-02-05 07:33 | PM.PREOP ---
Pre-operative Note COVID-19 COVID-19 status: Not tested Interval Note History & Physical reviewed/Exam performed by Physician: Yes Changes to H&P: No
[2024-02-05] MEDS: CEFAZOLIN 2 GM/100 ML PREMIX 100 ML IV (07:57)
--- NOTE | 2024-02-05 08:09 | SUR.OPER ---
Lithotomy on padded OR bed, head on pillow, arms secured on padded arm boards at <90 degrees abduction. Legs secured in padded yellow fins stirrups.
--- NOTE | 2024-02-05 09:42 | PM.OP.1 ---
Procedure & Clinicians Procedure: Cystoscopy Aquablation Transurethral resection of bladder tumor Same procedure as scheduled: Yes Indications: 73 y/o M w/ h/o BPH and LUTS who strongly desires surgical intervention as his symptoms are very bothersome and he does not like to take retirement medications. Discussed that his cystoscopy and TRUS prostate today were notable for a 1.5cm mass near his left ureteral orifice concerning for bladder cancer as well as coaptating lateral prostatic lobes, a moderate sized intravesical median lobe and a prostate volume of 67 grams. Surgeon: Dale Butt Click Yes if Unassisted: Yes Anesthesia Type: General Operative Notes Findings: 1.5cm bladder mass immediately lateral to left ureteral orifice, moderate sized prostate w/ coaptating lateral prostatic lobes and a moderate sized intravesical median lobe Closure Type: not applicable Specimen(s): other (Prostate chips, bladder mass) Applied: catheter Estimated Blood Loss (mL): 50 Blood products transfused: none Procedure in detail: After informed consent was obtained, the patient was identified brought to the operating room where he was placed in his supine position on the table.? Once there anesthesia was induced and maintained.? Ensuring an adequate level of anesthesia the patient was transitioned to the lithotomy position where after time-out he was prepped.? After prepping, ensuring an adequate level of anesthesia, administration IV antibiotics and time-out 60 cc of ultrasound gel was instilled within the rectum and the ultrasound probe which had been attached to the TRUS stepper which was attached to the TRUS stepper articulating arm which was secured to the bed was advanced into the rectum under direct vision via the ultrasound.? The ultrasound probe was then aligned and confirmation made that the prostate was centered and aligned in both the sagittal and transverse views.? The bladder neck, verumontanum, central and transitional zones were identified.? With the ultrasound in place and adjusted the patient was then draped in a sterile fashion. With the patient draped the 24 [place] aqua beam handpiece was then inserted through the urethra and advanced into the bladder.? Cystoscopy was then performed and a 1.5cm mass was noted immediately lateral to his left ureteral orifice.? Bilateral ureteral orifices were noted to be orthotopic in nature.? As the cystoscope was advanced the level of the sphincter, verumontanum, bladder neck were all identified via ultrasound and under direct vision.? The aqua beam hand place was then secured to the handpiece articulating arm which had been secured to the bed.? The Aquablation handpiece and TRUS probe were confirmed to be parallel and colinear.? Confirmation was then made that the aqua beam handpiece and nozzle was centered and anterior to the bladder neck. ?The cystoscope was then retracted under direct vision in the sphincter and verumontanum were identified.? The tip of the cystoscope was then placed proximal to the external sphincter.? Compression was applied with the TRUS probe to the prostate.? The alignment of the TRUS probe and aqua beam handpiece was once again confirmed.? Horizontal alignment of the handpiece water jet was then performed.? With these adjustments made, the treatment zones were then planned using real-time ultrasound.? In the largest transverse view of the prostate the depth and radial angles were determined and set again in the transverse view of the prostate.? In the longitudinal and sagittal view the Aquablation nozzle was identified and its position registered with the software and robot.? The treatment contours were then determined and adjusted to reflect the intended margins of resection.? Following our plan confirmation, the Aquablation resection treatment was started.? A 2nd pass was then completed in similar fashion after the 1st pass had been completed.? At this point, the Aqua hand piece was removed from the urethra. The 26Fr resectoscope was then inserted into the urethra and cystoscopy was repeated.? The Elik it architecture consultant was utilized to evacuate the blood clots from the bladder.? The bladder neck was then resected using the bipolar Gyrus loop.? The aforementioned bladder mass was then resected to its base and the resection site was extensively cauterized. Bilateral ureteral orifices were again identified and noted to be intact at case end. Hemostasis was obtained and noted to be excellent at case end. The resectoscope was then removed and a 24Fr 3-way hematuria catheter was inserted through the urethra and into the bladder.? 45cc of sterile water was utilized for balloon insufflation.? Efflux was noted to be clear at case end.? Anesthesia was reversed, he was extubated in the OR and transferred to the PACU in stable condition for recovery. Complications: none Post-operative Condition: stable Disposition: PACU Plan for aftercare: Will continue to run CBI for a few hours in the PACU. If efflux remains relatively clear, will discharge home with catheter and return to Urology clinic on 07 Feb 2024 for a voiding trial. Otherwise, will admit overnight for continued CBI and consider removal of torres catheter on the morning of 06 Feb 2024.
--- NOTE | 2024-02-05 13:05 | SUR.PHASEII ---
Pt states understanding of all discharge instructions. Dr Butt to bedside to speak to patient as well. Go ahead for patient to discharge home.
== END 2024-02-05 13:05 | disposition home or self-care (01) ==
PROVIDERS: Family Provider Student in an Organized Health Care Education/Training Program; PCP Family Medicine; Referring Provider Urology; Visit Provider Urology
PROC: 0VT08ZZ Resection of Prostate, Via Natural or Artificial Opening Endoscopic (ICD-10-PCS; CPT 52597; principal; 2024-02-05 07:45)
PROC: 0TBB8ZZ Excision of Bladder, Via Natural or Artificial Opening Endoscopic (ICD-10-PCS; CPT 0421T; 2024-02-05 07:45)
DX: N40.1 Benign prostatic hyperplasia with lower urinary tract symptoms (principal); N13.8 Other obstructive and reflux uropathy; R39.15 Urgency of urination; R33.8 Other retention of urine; R35.1 Nocturia; R35.0 Frequency of micturition
CPT/HCPCS: 0421T; C2596; J0330; J0690; J1100; J2405; J2704; J3010

== ENCOUNTER → 2024-02-07 15:15 | Outpatient (CLI) | payer MEDICARE, OTHER, SELFPAY | PROVIDERS: Family Provider Student in an Organized Health Care Education/Training Program; PCP Family Medicine; Visit Provider Urology | DX: N40.1 Benign prostatic hyperplasia with lower urinary tract symptoms (principal); N13.8 Other obstructive and reflux uropathy; R97.20 Elevated prostate specific antigen [PSA]; N32.89 Other specified disorders of bladder; R39.9 Unspecified symptoms and signs involving the genitourinary system | CPT/HCPCS: 51798; 81002; 87086 ==

== ENCOUNTER → 2024-03-19 14:52 | Outpatient (CLI) | payer MEDICARE, OTHER, SELFPAY | PROVIDERS: Family Provider Student in an Organized Health Care Education/Training Program; PCP Family Medicine; Visit Provider Urology | DX: N40.1 Benign prostatic hyperplasia with lower urinary tract symptoms (principal); N13.8 Other obstructive and reflux uropathy; R97.20 Elevated prostate specific antigen [PSA]; N32.89 Other specified disorders of bladder | CPT/HCPCS: 51798; 81002; 87086; 99213 ==

== ENCOUNTER 2024-05-08 08:00 | Outpatient (RCR) | payer MEDICARE, OTHER, SELFPAY ==
--- NOTE | 2024-05-08 09:25 | PT.OIE ---
Current Diagnoses Other obstructive and reflux uropathy (05/08/24) Overactive bladder (05/08/24) Benign prostatic hyperplasia with lower urinary tract symptoms (05/08/24) Past Medical History (Last Reviewed 03/19/24 @ 16:49 by Dale Butt DO) BPH w urinary obs/LUTS Elevated bilirubin Elevated PSA History of arthritis History of high blood pressure Hyperglycemia Seborrheic keratosis Past Surgical History (Last Reviewed 03/19/24 @ 16:49 by Dale Butt DO) History of cardiac radiofrequency ablation Hx of hernia repair Hx of vasectomy Visit Care Team Role Provider Type Juan Ramon Payton DO Family Provider Physician Primary Care Provider Specialty: Family Practice Address: [address] [place] [address], [facility] Email: [email or web address] Dale Butt DO Attending Provider Physician Referring Provider Specialty: Urology Address: [address] [place] [address], [id number] Fax: Email: Physical Therapy Initial Evaluation PT-OP-A Visit Information Start: 05/07/24 17:18 Freq: Status: Active Protocol: Document 05/08/24 08:15 [facility] (Rec: 05/09/24 09:19 [facility] [id number]) Out-Patient Physical Therapy Visit Information Visit Information Visit Type Initial Evaluation Visit Start Time 08:15 Visit Stop Time 09:00 Visit Number 1 Evaluation Information Evaluation Date 05/09/24 PT-OP-B Current Condition Start: 05/07/24 17:18 Freq: Status: Active Protocol: Document 05/08/24 08:18 [facility] (Rec: 05/08/24 08:58 [facility] [id number]) Current Condition History of Current Condition Current Complaints pt has a history of urinary urgency and frequency History of Current Condition 73 yo male w h/o BPH and LUTS who is s/p aquablation surgery in February and symptoms of urinary urgency and frequency have been decreasing. He isn't holding as much as he would like. He voids approx 10 times per day . Nocturia is 1-2 xms per night. He has been lifting weights since [place] upper and lower extremity, he is walking 3 days per week 2.5 miles. At this point he is no longer experiencing any urinary leakage. He does go to the bathroom just in case. Overall he feels he is making great progress and isn' t feeling he needs further PT PT-OP-C Subjective Start: 05/07/24 17:18 Freq: Status: Active Protocol: Document 05/08/24 08:15 [facility] (Rec: 05/09/24 09:19 [facility] [id number]) Patient Questionnaires Pelvic Pain and Urgency/Frequency Patient Symptom Scale Pelvic Pain Score 3 PT-OP-I Pelvic Floor Start: 05/07/24 17:18 Freq: Status: Active Protocol: Document 05/08/24 08:15 [facility] (Rec: 05/09/24 09:22 [facility] [id number]) Pelvic Floor Assessment Urine Pelvic Floor Surgery Yes: aquablation 3 months ago Urinary Symptoms Urge Sensation Other Urinary Symptoms pt reports symptoms of freuquency/urgency but that these have been both improving , he is not experiencing leakage at this time Comments Pelvic Floor Comments bladder irritants were reviewed as pt does drink coffee x 2 times a day and he was educated on increasing fluid intake as he is currently only drinking 2 glasses of water per day PT-OP-Q Treatments Start: 05/07/24 17:18 Freq: Status: Active Protocol: Document 05/08/24 08:15 [facility] (Rec: 05/08/24 08:59 [facility] [id number]) Therapeutic Exercises Supine Exercises pelvic floor long holds Reps/Minutes 10 reps holding 10 seconds and relaxing 10 seconds Self-Care/Home Management Treatment Education Patient Education Home Exercise Program Other Education pt was educated on the urge deference technique and bladder retraining, he was educated on bladder irritants and to increase his water intake as he is only drinking 2 glasses of water per day PT-OP-T Assessment and Plan Start: 05/07/24 17:18 Freq: Status: Active Protocol: Document 05/08/24 08:18 [facility] (Rec: 05/08/24 08:58 [facility] [id number]) Physical Therapy Assessment Evaluation Complexity Number of Personal Factors/Comorbidities 0 Number of Body Systems Impaired 1-2 Clinical Presentation at Evaluation Stable Assessment Summary Assessment Pt is a 73 year old male with h/o BPH and LUTS who is now s/ p an Aquablation procedure. He feels in the three months s /p his procedure he has slowly been making progress. At this point he is not experiencing any urinary leakage and urinary urgency is overall decreased. We did go through his dietary habits and he was educated on increasing his water intake and cutting back on coffee intake prior to his walks around [facility] to assist with his ability to walk the [address] without having to stop to void. He was educated on the urge deference technique today and was educated on pelvic floor endurance strengthening exercises. He reports since his surgery he has started weight lifting and he feels that the strength has really made a difference for him. He feels he does not need further PT after today's visit . I let him know if he needed any further assistance to let us know. At this point he will be discharged after today 's visit. Physical Therapy Plan Discharge Physical Therapy Discharge Reasons Patient Request Discharge Comments Marshall requested evaluation only as he is doing much better overall
--- NOTE | 2024-05-09 09:26 | PT.OPPOC ---
Physical, Occupational & Speech Therapy At [facility] Current Diagnoses Other obstructive and reflux uropathy (05/08/24) Overactive bladder (05/08/24) Benign prostatic hyperplasia with lower urinary tract symptoms (05/08/24) Visit Care Team Role Provider Type Juan Ramon Payton DO Family Provider Physician Primary Care Provider Specialty: Family Practice Address: [address] [place] [address], [id number] Email: [email or web address] Dale Butt DO Attending Provider Physician Referring Provider Specialty: Urology Address: [address] [place] [address], [id number] Fax: Email: Plan Of Care PT-OP-B Current Condition Start: 05/07/24 17:18 Freq: Status: Active Protocol: Document 05/08/24 08:18 [facility] (Rec: 05/08/24 08:58 [facility] [id number]) Current Condition History of Current Condition Current Complaints pt has a history of urinary urgency and frequency History of Current Condition 73 yo male w h/o BPH and LUTS who is s/p aquablation surgery in February and symptoms of urinary urgency and frequency have been decreasing. He isn't holding as much as he would like. He voids approx 10 times per day . Nocturia is 1-2 xms per night. He has been lifting weights since [place] upper and lower extremity, he is walking 3 days per week 2.5 miles. At this point he is no longer experiencing any urinary leakage. He does go to the bathroom just in case. Overall he feels he is making great progress and isn' t feeling he needs further PT PT-OP-T Assessment and Plan Start: 05/07/24 17:18 Freq: Status: Active Protocol: Document 05/08/24 08:18 [facility] (Rec: 05/08/24 08:58 [facility] [id number]) Physical Therapy Assessment Evaluation Complexity Number of Personal Factors/Comorbidities 0 Number of Body Systems Impaired 1-2 Clinical Presentation at Evaluation Stable Assessment Summary Assessment Pt is a 73 year old male with h/o BPH and LUTS who is now s/ p an Aquablation procedure. He feels in the three months s /p his procedure he has slowly been making progress. At this point he is not experiencing any urinary leakage and urinary urgency is overall decreased. We did go through his dietary habits and he was educated on increasing his water intake and cutting back on coffee intake prior to his walks around [facility] to assist with his ability to walk the [place] [address] without having to stop to void. He was educated on the urge deference technique today and was educated on pelvic floor endurance strengthening exercises. He reports since his surgery he has started weight lifting and he feels that the strength has really made a difference for him. He feels he does not need further PT after today's visit . I let him know if he needed any further assistance to let us know. At this point he will be discharged after today 's visit. Physical Therapy Plan Discharge Physical Therapy Discharge Reasons Patient Request Discharge Comments Marshall requested evaluation only as he is doing much better overall Electronically Signed by: Ruby Silver, PT 05/09/24 0926 If you are in agreement with this Plan of Care, please return a signed and dated copy. I have reviewed this Plan of Care and certify that the skilled therapy services above are required to meet the patient?s needs. Physician Signature Date Printed Name and Credentials Clinical Instructor Signature Printed Name and Credentials
--- NOTE | 2024-05-09 09:26 | PT.OPDS ---
Current Diagnoses Other obstructive and reflux uropathy (05/08/24) Overactive bladder (05/08/24) Benign prostatic hyperplasia with lower urinary tract symptoms (05/08/24) Visit Care Team Role Provider Type Juan Ramon Payton DO Family Provider Physician Primary Care Provider Specialty: Family Practice Address: [address] [place] [address], [id number] Email: [email or web address] Dale Butt DO Attending Provider Physician Referring Provider Specialty: Urology Address: [address] [place] [address], [phone] Fax: Email: Visit Number Visit Number 1 Discharge Summary PT-OP-B Current Condition Start: 05/07/24 17:18 Freq: Status: Active Protocol: Document 05/08/24 08:18 [facility] (Rec: 05/08/24 08:58 [facility] [id number]) Current Condition History of Current Condition Current Complaints pt has a history of urinary urgency and frequency History of Current Condition 73 yo male w h/o BPH and LUTS who is s/p aquablation surgery in February and symptoms of urinary urgency and frequency have been decreasing. He isn't holding as much as he would like. He voids approx 10 times per day . Nocturia is 1-2 xms per night. He has been lifting weights since [place] upper and lower extremity, he is walking 3 days per week 2.5 miles. At this point he is no longer experiencing any urinary leakage. He does go to the bathroom just in case. Overall he feels he is making great progress and isn' t feeling he needs further PT PT-OP-C Subjective Start: 05/07/24 17:18 Freq: Status: Active Protocol: Document 05/08/24 08:15 [facility] (Rec: 05/09/24 09:19 [facility] [id number]) Patient Questionnaires Pelvic Pain and Urgency/Frequency Patient Symptom Scale Pelvic Pain Score 3 PT-OP-I Pelvic Floor Start: 05/07/24 17:18 Freq: Status: Active Protocol: Document 05/08/24 08:15 [facility] (Rec: 05/09/24 09:22 [facility] [id number]) Pelvic Floor Assessment Urine Pelvic Floor Surgery Yes: aquablation 3 months ago Urinary Symptoms Urge Sensation Other Urinary Symptoms pt reports symptoms of freuquency/urgency but that these have been both improving , he is not experiencing leakage at this time Comments Pelvic Floor Comments bladder irritants were reviewed as pt does drink coffee x 2 times a day and he was educated on increasing fluid intake as he is currently only drinking 2 glasses of water per day PT-OP-T Assessment and Plan Start: 05/07/24 17:18 Freq: Status: Active Protocol: Document 05/08/24 08:18 [facility] (Rec: 05/08/24 08:58 [facility] [id number]) Physical Therapy Assessment Evaluation Complexity Number of Personal Factors/Comorbidities 0 Number of Body Systems Impaired 1-2 Clinical Presentation at Evaluation Stable Assessment Summary Assessment Pt is a 73 year old male with h/o BPH and LUTS who is now s/ p an Aquablation procedure. He feels in the three months s /p his procedure he has slowly been making progress. At this point he is not experiencing any urinary leakage and urinary urgency is overall decreased. We did go through his dietary habits and he was educated on increasing his water intake and cutting back on coffee intake prior to his walks around [facility] to assist with his ability to walk the [address] without having to stop to void. He was educated on the urge deference technique today and was educated on pelvic floor endurance strengthening exercises. He reports since his surgery he has started weight lifting and he feels that the strength has really made a difference for him. He feels he does not need further PT after today's visit . I let him know if he needed any further assistance to let us know. At this point he will be discharged after today 's visit. Physical Therapy Plan Discharge Physical Therapy Discharge Reasons Patient Request Discharge Comments Marshall requested evaluation only as he is doing much better overall
== END 2024-05-27 11:13 | disposition home or self-care (01) ==
LOC: PHYS 08:00
PROVIDERS: Family Provider Family Medicine; PCP Family Medicine; Referring Provider Urology; Visit Provider Urology
DX: N40.1 Benign prostatic hyperplasia with lower urinary tract symptoms (principal); N13.8 Other obstructive and reflux uropathy; N32.81 Overactive bladder
CPT/HCPCS: 97161; 97535

== ENCOUNTER → 2024-08-04 11:20 | Outpatient (CLI) | payer MEDICARE, OTHER, SELFPAY | PROVIDERS: Family Provider Family Medicine; PCP Family Medicine; Visit Provider Nurse Practitioner Family | DX: R10.9 Unspecified abdominal pain (principal) | CPT/HCPCS: 87086 ==

== ENCOUNTER 2024-08-07 09:00 | Emergency (ER) | payer MEDICARE, OTHER, SELFPAY ==
--- NOTE | 2024-08-07 09:03 | ED.ABDPAIN ---
HPI - Abdominal Pain General Chief Complaint: Abdominal Pain Stated Complaint: blocked colon X 30 days on and off Time Seen by Provider: 08/07/24 09:02 History of Present Illness HPI narrative: 74-year-old male without any significant past medical history comes into the ED from home for evaluation constipation, states that he has been intermittently constipated for the past month, states that he was normally regular bowel movements daily, states over the past 30 days he has been moving his bowels once every 3 days, he denies any history of surgeries to the abdomen, states that he did have a bowel movement yesterday but it was ?not a lot states that he has been feeling suprapubic pressure but denies any other symptoms such as nausea and vomiting chest pain shortness of breath or any other GI/ symptoms time. He states that he has been trying to take some [id number] constipation relief but he is not had much success with this therefore decided come into the ED for further evaluation treatment. Related Data Home Medications ?Medication ?Instructions ?Recorded ?Confirmed cholecalciferol (vitamin D3) PO 07/07/21 08/04/24 [Vitamin D3] magnesium PO 07/07/21 08/04/24 multivitamin [Daily Multi-Vitamin] PO 07/07/21 08/04/24 turmeric PO 05/09/23 08/04/24 vitamin A 2,400 mcg capsule 2,400 mcg PO DAILY 12/06/23 08/04/24 Previous Rx's ?Medication ?Instructions ?Recorded lactulose 10 gram/15 mL oral 10 g (15 mL) PO BID PRN 08/07/24 solution constipation #237 mL Allergies Allergy/AdvReac Type Severity Reaction Status Date / Time bisoprolol (BISOPROLOL) AdvReac Unknown ANXIETY Verified 08/07/24 09:08 digoxin (DIGOXIN) AdvReac Unknown ANXIETY Verified 08/07/24 09:08 lisinopril (LISINOPRIL) AdvReac Unknown ANXIETY Verified 08/07/24 09:08 Penicillins (PENICILLINS) AdvReac Unknown SOFT SKIN Verified 08/07/24 09:08 FUMARATE AdvReac Unknown ANXIETY Uncoded 08/07/24 09:08 Review of Systems Review of Systems Narrative: General: Denies fever, chills, weight loss HEENT: Denies headache, eye drainage, eye irritation, head trauma, sore throat, voice change Cardiovascular: Denies any chest pain, palpitations, tachycardia Respiratory: Denies any shortness of breath, cough, wheeze, stridor GI/: Positive abdominal pain, constipation denies nausea, vomiting, diarrhea, bright red blood per rectum, melanotic stools, urinary frequency, urinary retention, dysuria, hematuria MSK: Denies any joint pain, muscle pains, swelling Skin: Denies any rashes, lesions, discoloration Neuro: Denies any headache, lightheadedness, dizziness, fainting, weakness Psych: Denies SI/HI Patient History Medical History Seborrheic keratosis Elevated bilirubin Hyperglycemia BPH w urinary obs/LUTS Elevated PSA History of high blood pressure History of arthritis Surgical History History of cardiac radiofrequency ablation Hx of vasectomy Hx of hernia repair Family History Mother Breast cancer Thyroid disorder Social History marital status: unmarried,single number of children: 2 household members: significant other occupational status: previously employed Smoking Status: Never smoker alcohol intake: current substance use type: does not use caffeine: Yes eating out: 1-3 times/week Type(s) of exercise: walking and weight lifting alcohol intake frequency: 0-2 drinks per day Exam Narrative Exam Narrative: General: Cooperative, well-developed, not in acute distress HEENT: Normocephalic, atraumatic, PERRLA, normal sclera, eyelids normal Neck: Active full range of motion, atraumatic Chest: Normal to inspection, negative crepitus, no overlying erythema ecchymosis Respiratory: Normal respiratory effort, not in acute respiratory distress, clear to auscultation bilaterally negative cough, wheeze, tachypnea, rhonchi, rales Cardiology: Regular rate rhythm negative gallop, murmur, rubs GI/: No tenderness to palpation, soft, non rigid, normal to inspection, exam deferred MSK: Full active range of motion in all 4 extremities, atraumatic, no tenderness to palpation of any bony prominences Skin: No rashes or lesions noted Neuro: Alert awake oriented x3, moves all 4 extremities spontaneously, cranial nerves intact, able to answer all questions appropriately follows commands appropriately Psych: Cooperative, negative suicidal or homicidal ideations Initial Vital Signs Initial Vital Signs: Vital Signs Temperature 97.4 F L 08/07/24 09:07 Pulse Rate 69 08/07/24 09:07 Respiratory Rate 17 08/07/24 09:07 Blood Pressure 184/102 H 08/07/24 09:07 Pulse Oximetry 99 08/07/24 09:07 Oxygen Delivery Method Room Air 08/07/24 09:07 Course Orders Ordered: ED Orders 08/07/24 09:03 CT abdomen pelvis w con Stat 08/07/24 09:20 Complete Blood Count AUTO DIFF Stat Comprehensive Metabolic Panel Stat Lactate (Lactic Acid) Stat Lipase Stat MAG [Magnesium] Stat Discontinued Medications Sodium Chloride (Normal Saline 0.9%) 1,000 mls @ 1,000 mls/hr IV BOLUS ONE Stop: 08/07/24 10:02 Last Admin: 08/07/24 09:24 Dose: 1,000 mls/hr Documented By: Vital Signs Vital signs: Vital Signs - 8 hr 08/07/24 09:07 08/07/24 09:16 08/07/24 09:16 Temperature 97.4 F L Pulse Rate 69 62 Respiratory Rate 17 Blood Pressure 184/102 H 186/104 H Pulse Oximetry 99 99 Oxygen Delivery Method Room Air MDM - Abdominal Pain Differential Diagnosis Differential diagnosis: Likely abdominal pain, acute appendicitis, constipation, diverticulitis, gastroenteritis and small bowel obstruction Lab Data 08/07/24 09:20 08/07/24 09:20 Labs: Lab Results 08/07/24 Range/Units 09:20 WBC 7.1 (4.5-11.0) X10^3/uL RBC 5.12 (4.5-5.9) X10^6/uL Hgb 16.1 (13.5-17.5) g/dL Hct 47.0 (41-53) % MCV 91.6 (80-100) fL MCH 31.4 (26-34) PG MCHC 34.2 (30-36) % RDW 12.7 (11.6-14.8) % Plt Count 199 (150-400) X10^3/uL Neut % (Auto) 61.8 (50-75) % Lymph % (Auto) 25.8 (25-40) % [place] % (Auto) 10.7 (3-14) % Eos % (Auto) 1.0 L (2-4) % Baso % (Auto) 0.7 (0-2) % Neut # (Auto) 4400 (2113-0361) /uL Lymph # (Auto) 1800 (7389-7389) /uL [place] # (Auto) 800 (0-900) /uL Eos # (Auto) 100 (0-450) /uL Baso # (Auto) 100 (0-100) /uL Sodium 138 (137-145) mmol/L Potassium 3.9 (3.4-5.1) mmol/L Chloride 105 (98-107) mmol/L Carbon Dioxide 23 (22-32) mmol/L BUN 14 (9-20) mg/dL Creatinine 0.94 (0.66-1.25) mg/dL Estimated GFR > 60 (>60) mL/min BUN/Creatinine Ratio 14.9 (6-22) Glucose 102 H (70-99) mg/dL Lactate 1.5 (0.7-2.1) mmol/L Calcium 9.4 (8.4-10.2) mg/dL Magnesium 2.1 (1.6-2.3) mg/dL Total Bilirubin 1.9 H (0.2-1.3) mg/dL AST 28 (17-59) IU/L ALT 24 (<50) IU/L Alkaline Phosphatase 56 (38-126) U/L Total Protein 7.3 (6.3-8.2) g/dL Albumin 4.6 (3.5-5.0) g/dL Globulin 2.7 (1.7-4.1) g/dL Albumin/Globulin Ratio 1.7 (1.0-2.8) Lipase 56 (23-300) U/L Point of care testing: Urine Dip Bedside Urine Glucose Negative Bedside Urine Bilirubin - Negative Bedside Urine Ketone - Negative Urine Specific [place] 1.010 Bedside Urine Occult Blood - Negative Bedside Urine pH 7.0 Bedside Urine Protein - Negative Bedside Urine Urobilinogen - Negative Bedside Urine Nitrite - Negative Bedside Urine Leukocytes - Negative Esterase Imaging Data CT scan - abdomen/pelvis: Radiologist's Impression: [address] [address] [address] Scan Report Signed Patient: Marshall Jolly MR#: [id number] : 1950 Acct:[id number] Age/Sex: 74 / M Date of Service: 08/07/24 Loc: ED Accession Number: [id number] Procedure: CT abdomen pelvis w con Ordering Provider: Colin Medellin D.O. PROCEDURE: CT ABDOMEN PELVIS W CON INDICATIONS: constipation TECHNIQUE: After the administration of intravenous contrast, axial sections acquired from the lung bases to the pubic symphysis. Coronal and sagittal reformats were performed. For radiation dose reduction, the following was used: automated exposure control, adjustment of mA and/or kV according to patient size. COMPARISON: [facility], CT, CT ABDOMEN PELVIS W CON, 11/17/2021, 6:53. FINDINGS: Image quality: Diagnostic. Lower Chest: No significant findings. ABDOMEN: Liver: No solid mass. Gallbladder: Multiple small calcified gallstones are present. Biliary ducts: No biliary dilation. Pancreas: No ductal dilation. Spleen: Size is within normal limits. Adrenal Glands: No adrenal nodules. Kidneys and Ureters: No hydronephrosis. No solid mass. No complex renal cystic lesion which requires follow up. Stomach and Bowel: Partially calcified fat lobule anterior to the proximal sigmoid colon likely secondary to prior epiploic appendagitis, similar to the prior CT.. Mild colonic diverticulosis without signs of acute diverticulitis. Appendix is within normal limits. Moderate colonic stool. Small bowel loops are unremarkable. Small hiatal hernia. Peritoneum: No abnormal intraperitoneal fluid. No free air. Ventral Wall: No significant ventral hernia. Abdominal Nodes: No retroperitoneal or mesenteric adenopathy by size criteria. Vessels: Aorta and inferior vena cava are normal in size. PELVIS: Pelvic Organs: Prostate is enlarged. Bladder: No bladder wall thickening, accounting for underdistention. Pelvic Nodes: No enlarged lymph nodes. Miscellaneous: No inguinal hernias are seen. Bones: No aggressive osseous abnormality. Degenerative changes are seen in the included spine. IMPRESSION: 1. No acute abnormality identified in the abdomen or pelvis. 2. Colonic diverticulosis. Moderate colonic stool. 3. Small hiatal hernia. 4. Cholelithiasis. 5. Prostatomegaly. MDM Narrative Medical decision making narrative: 74-year-old male without any significant past medical history presenting for constipation suprapubic pressure ongoing intermittent persistent for the past 30 days, states he has normally been having regular bowel movements 30 days ago but now is moving his bowels once every 3 days, he denies any new changes to his diet states he has been increasing his fiber intake and fluids, however he states he has had no relief, did have a bowel movement yesterday, patient had lab work imaging urinalysis performed here in the emergency department. Urinalysis not consistent with acute urinary tract infection, lab work unremarkable, no leukocytosis, Chem panel unremarkable, lactate normal. CT scan showed moderate constipation but no acute findings within the abdomen and pelvis, patient was given 1st dose of lactulose here sent home with prescription instructed follow up with PCP and GI in outpatient setting he was given strict return precautions he verbalized understanding of this and agrees to being discharged home with outpatient follow up Discharge Plan Departure Patient Disposition: Home Clinical Impression: Constipation Instructions: DI for Constipation Activity Restrictions/Additional Instructions: Please follow up with the primary care doctor and GI in outpatient setting Please read the discharge instructions sheet carefully and bring all papers to all doctor follow-up visits, as it may contain information that your doctor may want to see. Disease processes change and evolve, if your symptoms worsen or if you develop any new symptoms that are concerning to you please return for evaluation. Your evaluation today does not show any evidence of any life-threatening/serious illnesses requiring admission to the hospital or surgery. Please follow-up with your doctor for re-evaluation in approximately 1 day. Seek immediate medical attention for any worrisome symptoms. *If you do not have a primary care provider please contact the [facility] Resource line at [phone]. They will ask some questions about your medical history and help get you set up with a doctor in the community. Prescriptions: New lactulose 10 gram/15 mL solution 10 g PO BID PRN (Reason: constipation) Qty: 237 0RF No Action turmeric PO cholecalciferol (vitamin D3) [Vitamin D3] PO magnesium PO multivitamin [Daily Multi-Vitamin] PO vitamin A 2,400 mcg capsule 2,400 mcg PO DAILY Referrals: Chavo Tompkins MD [Non-Staff, Internal Medicine] Referral Note: GI follow up Juan Ramon Payton DO [Primary Care Provider, Family Practice] Stand Alone Forms: Patient Portal/API
[2024-08-07 09:07] VITALS: BP 184/102; PULSE 69; RESP 17; TEMP 36.3; O2SAT 99; BMI 26.4
[2024-08-07 09:16] VITALS: BP 186/104; PULSE 62; O2SAT 99
[2024-08-07] MEDS: SODIUM CHLORIDE 0.9% 1,000 ML 1000 ML IV (09:24)
[2024-08-07 09:28] LABS: Add Manual Diff / Slide Review NO; Basophils Absolute Auto 100 /uL (0-100); Basophils Percent Auto 0.7 % (0-2); Eosinophils Absolute Auto 100 /uL (0-450); Hemoglobin 16.1 g/dL (13.5-17.5); Lymphocytes Absolute Auto 1800 /uL (1100-4500); Lymphocytes Percent Auto 25.8 % (25-40); Mean Corpuscular HGB Conc 34.2 % (30-36); Mean Corpuscular Hemoglobin 31.4 PG (26-34); Mean Corpuscular Volume 91.6 fL (80-100); Monocytes Absolute Auto 800 /uL (0-900); Monocytes Percent Auto 10.7 % (3-14); Neutrophils Absolute Auto 4400 /uL (1500-7000); Neutrophils Percent Auto 61.8 % (50-75); Platelet Count 199 X10^3/uL (150-400); Red Blood Cell Count 5.12 X10^6/uL (4.5-5.9); Red Cell Distribution Width 12.7 % (11.6-14.8); White Blood Cell Count 7.1 X10^3/uL (4.5-11.0)
[2024-08-07 09:30] VITALS: BP 150/88; PULSE 60; O2SAT 99
[2024-08-07 09:42] LABS: Alanine Aminotransferase 24 IU/L (<50); Albumin 4.6 g/dL (3.5-5.0); Albumin Globulin Ratio 1.7 (1.0-2.8); Alkaline Phosphatase 56 U/L (38-126); Aspartate Aminotransferase 28 IU/L (17-59); BUN Creatinine Ratio 14.9 (6-22); Bilirubin Total 1.9 mg/dL (0.2-1.3); Blood Urea Nitrogen 14 mg/dL (9-20); Calcium 9.4 mg/dL (8.4-10.2); Carbon Dioxide 23 mmol/L (22-32); Chloride 105 mmol/L (98-107); Estimated Glomerular Filt Rate > 60 mL/min (>60); Globulin 2.7 g/dL (1.7-4.1); Glucose 102 mg/dL (70-99); HEMOLYSIS < 15 (0-50); Lactate (Lactic Acid) 1.5 mmol/L (0.7-2.1); Lipase 56 U/L (23-300); Magnesium 2.1 mg/dL (1.6-2.3); Potassium 3.9 mmol/L (3.4-5.1); Sodium 138 mmol/L (137-145); Total Protein 7.3 g/dL (6.3-8.2)
[2024-08-07 09:57] VITALS: BP 175/91; PULSE 68; O2SAT 99
[2024-08-07 10:00] VITALS: BP 153/93; PULSE 59; O2SAT 99
[2024-08-07 10:30] VITALS: BP 149/85; PULSE 61; O2SAT 100
[2024-08-07] MEDS: LACTULOSE 20 GM/30 ML SOLUTION PO (10:42)
--- NOTE | 2024-08-19 11:16 | PC.NURSE ---
late entry per RN the 6/4 NS bolus started @0924 was DC'd at 1030.
== END 2024-08-07 10:44 | disposition home or self-care (01) ==
PROVIDERS: Emergency Provider Student in an Organized Health Care Education/Training Program; Family Provider Family Medicine; PCP Family Medicine
DX: K59.00 Constipation, unspecified (principal)
CPT/HCPCS: 36415; 74177; 80053; 81003; 83605; 83690; 83735; 85025; 96360; 99284; Q9967

== ENCOUNTER → 2024-10-10 07:16 | Outpatient (CLI) | payer MEDICARE, OTHER, SELFPAY ==
[2024-10-10 08:06] LABS: Estimated Glomerular Filt Rate > 60 mL/min (>60)
[2024-10-10 08:35] LABS: Prostate Specific Antigen 2.29 ng/mL (0.10-4.00)
== END ==
PROVIDERS: PCP Family Medicine; Referring Provider Family Medicine; Visit Provider Urology
DX: R97.20 Elevated prostate specific antigen [PSA] (principal); N40.1 Benign prostatic hyperplasia with lower urinary tract symptoms; N13.8 Other obstructive and reflux uropathy; N32.89 Other specified disorders of bladder
CPT/HCPCS: 36415; 82565; 84153